=== PATIENT | female | born 1955 | race Caucasian/White ===

== ENCOUNTER 2017-12-31 10:48 | Outpatient (CLI) | payer OTHER ==
[2017-12-31 11:52] LABS: eGFR (African) > 60; eGFR (Non-African) > 60
== END 2017-12-31 10:50 ==
LOC: LAB 10:48
PROVIDERS: ATTEND Internal Medicine Rheumatology
DX: M10.9 Gout, unspecified (principal)
CPT/HCPCS: 36415; 80053; 84550